=== PATIENT | male | born 1970 | race Caucasian/White ===

== ENCOUNTER 2021-02-12 09:31 | Outpatient (CLI) | payer OTHER, SELFPAY ==
[2021-02-12 09:49] LABS: Basophils Absolute Auto 0.05 K/mm3 (0.00-0.10); Basophils Percent Auto 0.8 % (0.0-1.0); Eosinophils Absolute Auto 0.16 K/mm3 (0.02-0.50); Eosinophils Percent Auto 2.4 % (1.0-6.0); Hematocrit 49.2 % (40.0-54.0); Hemoglobin 17.8 g/dL (14.0-18.0); Immature Granulocyte Absolute 0.03 K/mm3 (0.00-0.00); Immature Granulocyte Percent A 0.5 % (0.0-0.0); Lymphocytes Absolute Auto 1.75 K/mm3 (1.10-4.50); Lymphocytes Percent Auto 26.5 % (18.0-42.0); Mean Corpuscular HGB Conc 36.2 g/dL (32.0-36.0); Mean Corpuscular Hemoglobin 32.7 pg (27.0-31.0); Mean Corpuscular Volume 90.3 fL (78.0-102.0); Mean Platelet Volume 9.7 fl (8.7-11.0); Monocytes Absolute Auto 0.47 K/mm3 (0.10-0.90); Monocytes Percent Auto 7.1 % (2.0-11.0); Neutrophils Absolute Auto 4.1 K/mm3 (1.7-7.2); Neutrophils Percent Auto 62.7 % (50.0-70.0); Platelet Count Result 223 K/mm3 (150-420); Red Blood Count 5.45 M/mm3 (4.70-6.10); Red Cell Distribution Width 12.3 % (11.6-14.4); White Blood Count 6.6 K/mm3 (4.8-10.8)
[2021-02-12 10:08] LABS: Creatinine Urine 45.14 mg/dL (40-278); MALB Creatinine Ratio 140.2 mg/g (0-30); Microalbumin Urine Random 63.3 mg/L
[2021-02-12 10:46] LABS: Alanine Aminotransferase 69 U/L (16-63); Albumin Level 4.4 g/dL (3.4-5.0); Alkaline Phosphatase 52 U/L (46-116); Anion Gap 13 mmol/L (8-16); Aspartate Amino Transferase 19 U/L (15-37); Bilirubin,Total 0.7 mg/dL (0.00-1.00); Blood Urea Nitrogen 20 mg/dL (7-18); Calcium 9.4 mg/dL (8.5-10.1); Carbon Dioxide 25 mmol/L (21-32); Chloride 99 mmol/L (98-108); Cholesterol 223 mg/dL (0-200); Estimated Glomerular Filt Rate > 60; Glucose 287 mg/dL (70-99); HDL Direct 34 mg/dL (40-60); Osmolality Calculated 296 mOsm/kg (285-295); Potassium 4.4 mmol/L (3.5-5.1); Prostate Specific Antigen 0.4 ng/mL (< OR = 4.0); Sodium 137 mmol/L (136-145); Thyroid Stimulating Hormone Reflex 1.25 u/IU/mL (0.36-3.74)
[2021-02-12 10:47] LABS: LDL Cholesterol Calculated 82 mg/dL (<130); Triglycerides 537 mg/dL (0-150)
[2021-02-12 10:48] LABS: LDL Cholesterol Direct 104 mg/dL (0-130)
[2021-02-16 00:28] LABS: Vitamin D 25 Hydroxy 25 ng/mL (30-100)
== END 2021-02-12 09:32 | disposition home or self-care (01) ==
LOC: CHSLAB 09:36
PROVIDERS: PCP Family Medicine; Visit Provider Family Medicine
DX: E11.9 Type 2 diabetes mellitus without complications (principal); I10 Essential (primary) hypertension; E11.59 Type 2 diabetes mellitus with other circulatory complications; I15.2 Hypertension secondary to endocrine disorders; Z12.5 Encounter for screening for malignant neoplasm of prostate; E78.5 Hyperlipidemia, unspecified; E55.9 Vitamin D deficiency, unspecified
CPT/HCPCS: 36415; 80053; 80061; 82043; 82306; 83036; 83721; 84153; 84443; 85025; G0103

== ENCOUNTER 2021-03-15 08:56 | Outpatient (CLI) | payer OTHER, SELFPAY ==
[2021-03-15 10:22] LABS: SARS-CoV-2 RNA PCR Positive (Negative)
== END 2021-03-15 08:57 | disposition home or self-care (01) ==
LOC: CHSLAB 09:01
PROVIDERS: PCP Family Medicine; Visit Provider Nurse Practitioner Family
DX: U07.1 COVID-19 (principal)
CPT/HCPCS: C9803; U0003; U0005

== ENCOUNTER 2021-03-17 11:39 | Outpatient (CLI) | payer OTHER, SELFPAY ==
--- NOTE | ~2021-03-17 | XR_ITS ---
XR chest 2V 03/17/2021 12:09 Indication: Cough and shortness of breath Procedure: 2 view chest Comparison: No prior studies for comparison. Findings: There are patchy bibasilar infiltrates, suspicious for pneumonia. Heart size normal. No sig nificant effusion or pneumothorax. No acute osseous abnormality. Impression: 1: Patchy bibasilar infiltrates, suspicious for pneumonia. Reviewed, dictated and finalized at location A. [employer] OPERATOR Impression: 1: Patchy bibasilar infiltrates, suspicious for pneumonia.
== END 2021-03-17 11:40 | disposition home or self-care (01) ==
PROVIDERS: PCP Nurse Practitioner Family; Visit Provider Nurse Practitioner Family
DX: U07.1 COVID-19 (principal)
CPT/HCPCS: 71046

== ENCOUNTER 2021-03-18 09:30 | Outpatient (CLI) | payer OTHER, SELFPAY ==
[2021-03-18] MEDS: ACETAMINOPHEN 325 MG TABLET 650 MG PO (10:00)
[2021-03-18] MEDS: FAMOTIDINE 20 MG TABLET PO (10:00)
[2021-03-18] MEDS: diphenhydrAMINE HCl CAP 25 MG CAPSULE PO (10:00)
--- NOTE | 2021-03-18 12:17 | PC.NURSE ---
tolerated the infusion with no difficulty. vs prior tx [id number] 97% ra and post tx [id number]/[id number]% ra. iv out and escorted to main door to son's auto.
== END 2021-03-18 09:31 | disposition home or self-care (01) ==
PROVIDERS: PCP Family Medicine; Visit Provider Nurse Practitioner Family
DX: U07.1 COVID-19 (principal)
CPT/HCPCS: A9270; J7050; M0243; Q0244

== ENCOUNTER 2021-03-19 21:31 | Emergency (ER) | payer OTHER, SELFPAY ==
--- NOTE | ~2021-03-19 | XR_ITS ---
EXAMINATION: XR chest 1V portable DATE: 03/20/2021 00:30 INDICATION: Cough. COVID-19 pneumonia. TECHNIQUE: A single frontal view of the chest was obtained. COMPARISON: Chest 2 views 03/17/2021 FINDINGS: There are airspace opacities in the mid and lower lung zones with a peripheral predominance . No pleural effusion or pneumothorax. The heart size is normal. IMPRESSION: 1. Mildly worsened airspace opacities in the mid and lower lung zones, consistent with COVID-19 pneum onia. Reviewed, dictated and finalized at location A. [employer] PANEL BUILDER IMPRESSION: 1. Mildly worsened airspace opacities in the mid and lower lung zones, consiste nt with COVID-19 pneumonia.
--- NOTE | 2021-03-19 21:47 | ED.SOB ---
HPI - SOB/Dyspnea General Chief Complaint: Shortness of Breath/Dyspnea Stated Complaint: Covid + Time Seen by Provider: 03/19/21 22:38 Source: patient Mode of arrival: ambulatory Limitations: no limitations History of Present Illness HPI Narrative: 50-year-old man with history of type 2 diabetes comes in today complaining of increasing shortness of breath over last day or so. Dyspnea is improved at rest and worse with exertion. On March 15 you was diagnosed with COVID after developing symptoms over the previous day. States that he has had some vomiting yesterday and intermittent chest pressure and fever at the onset of his illness. He denies any chest pain or pressure at present. He denies any history of heart or lung disease. He did not get the COVID vaccine. He denies syncope, diarrhea, abdominal pain, and upper respiratory symptoms. He states he had a chest x-ray 2 days ago which suggested pneumonia . He also received Covid antibody infusion yesterday. MD elicited complaint: shortness of breath and cough Pertinent past history: diabetes Onset (ago): day(s) (5) Timing: constant and progressively worsening Exacerbating factors: exertion Relieving factors: rest Known history of: diabetes Associated symptoms: cough and nausea/vomiting Related Data Home oxygen amount: none Home Medications Medication Instructions Recorded Confirmed alpha lipoic acid 200 mg capsule 200 mg PO BID 02/12/21 03/19/21 ascorbate calcium (vitamin C) 500 500 mg PO DAILY 02/12/21 03/19/21 mg tablet ezetimibe 10 mg tablet 10 mg PO DAILY 02/12/21 03/19/21 glipizide 10 mg tablet 10 mg PO BID 02/12/21 03/19/21 mecobalamin (vitamin B12) 1,000 3,000 mcg PO DAILY tablet 02/12/21 03/19/21 mcg chewable tablet omega-3 acid ethyl esters 1 gram 2 cap PO BID cap 02/12/21 03/19/21 capsule zinc acetate 50 mg (zinc) capsule 50 mg PO DAILY 02/12/21 03/19/21 Allergies Allergy/AdvReac Type Severity Reaction Status Date / Time No Known Allergies Allergy Unverified 02/12/21 08:58 Review of Systems Constitutional: Constitutional: Denies chills, Reports fatigue, Denies fever(s) and Denies weakness ENT: Denies nasal congestion and Denies sore throat Cardiovascular: Cardiovascular: Denies chest pain and Denies radiating jaw, neck or arm pain Respiratory: Respiratory: Reports chest congestion, Reports cough, Reports dyspnea and Denies wheezing Gastrointestinal: Gastrointestinal: Denies abdominal pain, Denies diarrhea, Denies nausea and Reports vomiting Musculoskeletal: Musculoskeletal: Denies back pain, Denies arthralgias and Denies joint swelling Comments: Denies calf pain and leg tenderness Integumentary/Breasts: Skin/Breast: Denies pruritus, Denies erythema and Denies rash Neurologic: Denies vertigo, Denies dizziness, Denies syncope, Denies focal weakness and Denies numbness Allergic/Immunologic: Allergic/Immunologic: Denies lip swelling and Denies throat swelling PMFSH Past Medical History Medical History Benign essential hypertension Encounter for prostate cancer screening Hyperlipidemia associated with type 2 diabetes mellitus Hypertension associated with type 2 diabetes mellitus Low vitamin D level Type 2 diabetes mellitus Surgical History Surgical History H/O left knee surgery Family History Family History Father Diabetes mellitus Congestive heart failure Mother Diabetes mellitus Social History Social History Smoking status: Former smoker Tobacco type: cigarettes Alcohol intake: current Alcohol use details: socially Substance use: never Substance use type: does not use Gender identity (if verbalized by the patient): Male Exam Const: General: healthy
[2021-03-19 22:00] VITALS: BP 148/88; PULSE 109; RESP 20; TEMP 37; O2SAT 92
--- NOTE | 2021-03-19 22:48 | ECG_ITS ---
Measurements Intervals [place] Rate: 97 P: 56 IN: 217 QRS: -36 QRSD: 121 T: 43 QT: 361 QTc: 459 Interpretive Statements SINUS RHYTHM WITH FIRST DEGREE AV BLOCK LEFT AXIS DEVIATION INTRAVENTRICULAR CONDUCTION DELAY POOR R WAVE PROGRESSION, ANTERIOR LEADS INFERIOR INFARCT, AGE INDETERMINATE ABNORMAL ECG Electronically Signed On 03-20-2021 7:06:18 [employer]ITCH[employer]ORTER by Gerardo Malik D.O.
[2021-03-19] MEDS: ACETAMINOPHEN/CODEINE (*CRX) 300/30 MG TABLET 1 TAB PO (23:03)
[2021-03-19 23:30] LABS: Basophils Absolute Auto 0.02 K/mm3 (0.00-0.10); Basophils Percent Auto 0.2 % (0.0-1.0); Eosinophils Percent Auto 1.2 % (1.0-6.0); Hematocrit 40.4 % (40.0-54.0); Hemoglobin 14.6 g/dL (14.0-18.0); Immature Granulocyte Absolute 0.04 K/mm3 (0.00-0.00); Immature Granulocyte Percent A 0.5 % (0.0-0.0); Lymphocytes Absolute Auto 1.52 K/mm3 (1.10-4.50); Mean Corpuscular HGB Conc 36.1 g/dL (32.0-36.0); Mean Corpuscular Hemoglobin 32.8 pg (27.0-31.0); Mean Corpuscular Volume 90.8 fL (78.0-102.0); Monocytes Absolute Auto 0.62 K/mm3 (0.10-0.90); Monocytes Percent Auto 7.3 % (2.0-11.0); Neutrophils Absolute Auto 6.1 K/mm3 (1.7-7.2); Neutrophils Percent Auto 72.8 % (50.0-70.0); Platelet Count Result 189 K/mm3 (150-420); Red Blood Count 4.45 M/mm3 (4.70-6.10); Red Cell Distribution Width 12.1 % (11.6-14.4); White Blood Count 8.4 K/mm3 (4.8-10.8)
[2021-03-19 23:45] LABS: D Dimer 0.44 mg/L (0.19-0.50); Partial Thromboplastin Time 30.2 SEC (23.90-30.70); Prothrombin Time 10.4 Seconds (9.50-12.10)
[2021-03-19 23:46] LABS: Alanine Aminotransferase 43 U/L (16-63); Alkaline Phosphatase 48 U/L (46-116); Anion Gap 17 mmol/L (8-16); Bilirubin,Total 0.5 mg/dL (0.00-1.00); Blood Urea Nitrogen 20 mg/dL (7-18); Calcium 8.9 mg/dL (8.5-10.1); Carbon Dioxide 21 mmol/L (21-32); Chloride 95 mmol/L (98-108); Estimated CRCL calculation 105 ml/min; Estimated Glomerular Filt Rate > 60; Glucose 273 mg/dL (70-99); Osmolality Calculated 288 mOsm/kg (285-295); Potassium 3.8 mmol/L (3.5-5.1); Sodium 133 mmol/L (136-145)
[2021-03-19 23:49] LABS: Lactic Acid Reflex 1.1 mmol/L (0.4-2.0)
[2021-03-20 00:03] LABS: Aspartate Amino Transferase 18 U/L (15-37)
[2021-03-20 00:15] VITALS: BP 130/81; PULSE 91; RESP 18; O2SAT 94
[2021-03-20 00:43] VITALS: BP 115/79; PULSE 87; RESP 20; TEMP 36.2; O2SAT 95
== END 2021-03-20 00:56 | disposition home or self-care (01) ==
PROVIDERS: Emergency Provider Emergency Medicine; PCP Family Medicine
DX: U07.1 COVID-19 (principal); J12.82 Pneumonia due to coronavirus disease 2019
CPT/HCPCS: 36415; 36600; 71045; 80053; 82805; 83605; 85025; 85380; 85610; 85730; 87040; 93005; 99283; 99284; A9270

== ENCOUNTER 2021-09-03 15:56 | Outpatient (CLI) | payer BC, SELFPAY ==
[2021-09-03 16:11] LABS: Basophils Absolute Auto 0.04 K/mm3 (0.00-0.10); Basophils Percent Auto 0.5 % (0.0-1.0); Eosinophils Absolute Auto 0.19 K/mm3 (0.02-0.50); Eosinophils Percent Auto 2.6 % (1.0-6.0); Hematocrit 44.2 % (40.0-54.0); Hemoglobin 16.2 g/dL (14.0-18.0); Immature Granulocyte Absolute 0.02 K/mm3 (0.00-0.00); Immature Granulocyte Percent A 0.3 % (0.0-0.0); Lymphocytes Absolute Auto 2.02 K/mm3 (1.10-4.50); Lymphocytes Percent Auto 27.4 % (18.0-42.0); Mean Corpuscular HGB Conc 36.7 g/dL (32.0-36.0); Mean Corpuscular Hemoglobin 32.9 pg (27.0-31.0); Mean Corpuscular Volume 89.8 fL (78.0-102.0); Mean Platelet Volume 10.1 fl (8.7-11.0); Monocytes Absolute Auto 0.68 K/mm3 (0.10-0.90); Monocytes Percent Auto 9.2 % (2.0-11.0); Neutrophils Absolute Auto 4.4 K/mm3 (1.7-7.2); Platelet Count Result 202 K/mm3 (150-420); Red Blood Count 4.92 M/mm3 (4.70-6.10); Red Cell Distribution Width 12.2 % (11.6-14.4); White Blood Count 7.4 K/mm3 (4.8-10.8)
[2021-09-03 16:37] LABS: Alanine Aminotransferase 53 U/L (16-63); Albumin Level 3.9 g/dL (3.4-5.0); Alkaline Phosphatase 46 U/L (46-116); Anion Gap 11 mmol/L (8-16); Aspartate Amino Transferase 15 U/L (15-37); Bilirubin,Total 0.5 mg/dL (0.00-1.00); Blood Urea Nitrogen 14 mg/dL (7-18); Calcium 8.7 mg/dL (8.5-10.1); Carbon Dioxide 24 mmol/L (21-32); Chloride 97 mmol/L (98-108); Cholesterol 180 mg/dL (0-200); Estimated Glomerular Filt Rate > 60; Glucose 248 mg/dL (70-99); HDL Direct 28 mg/dL (40-60); Osmolality Calculated 282 mOsm/kg (285-295); Potassium 3.8 mmol/L (3.5-5.1); Sodium 132 mmol/L (136-145); Total Protein 7.7 g/dL (6.4-8.2)
[2021-09-03 16:38] LABS: LDL Cholesterol Calculated 27 mg/dL (<130); Triglycerides 623 mg/dL (0-150)
[2021-09-03 16:39] LABS: LDL Cholesterol Direct 78 mg/dL (0-130)
[2021-09-07 14:49] LABS: Vitamin D 25 Hydroxy 20 ng/mL (30-100)
== END 2021-09-03 15:57 | disposition home or self-care (01) ==
LOC: CHSLAB 15:59
PROVIDERS: PCP Nurse Practitioner Family; Visit Provider Nurse Practitioner Family
DX: E11.59 Type 2 diabetes mellitus with other circulatory complications (principal); I15.2 Hypertension secondary to endocrine disorders; E78.5 Hyperlipidemia, unspecified; R79.89 Other specified abnormal findings of blood chemistry
CPT/HCPCS: 36415; 80053; 80061; 82306; 83036; 83721; 85025

== ENCOUNTER 2022-02-11 15:08 | Outpatient (CLI) | payer SELFPAY ==
[2022-02-11 15:41] LABS: Hemoglobin A1C 8.8 % (<5.7)
== END 2022-02-11 15:09 | disposition home or self-care (01) ==
LOC: CHSLAB 15:09
PROVIDERS: PCP Family Medicine; Visit Provider Nurse Practitioner Family
DX: E11.9 Type 2 diabetes mellitus without complications (principal)
CPT/HCPCS: 36415; 83036